=== PATIENT | female | born 1990 ===

== ENCOUNTER → 2018-11-14 | Outpatient (CLI) | payer BC ==
[~2018-11-14] MED LIST: CYCL10 PO; IBUP600 PO
== END | disposition home or self-care (01) ==
LOC: LAB SHORT 13:22 → LAB 13:22
PROVIDERS: Obstetrics & Gynecology
DX: Z01.419 Encounter for gynecological examination (general) (routine) without abnormal findings (principal)
CPT/HCPCS: G0123

== ENCOUNTER → 2021-12-13 | Outpatient (CLI) | payer BC | END | disposition home or self-care (01) | LOC: LAB 16:45 → LAB SHORT 16:45 | DX: N39.0 Urinary tract infection, site not specified (principal) | CPT/HCPCS: 87086 ==

== ENCOUNTER → 2022-01-01 | Outpatient (CLI) | payer BC | END | disposition home or self-care (01) | LOC: LAB 18:40 → LAB SHORT 18:40 | DX: N39.0 Urinary tract infection, site not specified (principal) | CPT/HCPCS: 87086 ==

== ENCOUNTER → 2022-04-11 | Outpatient (CLI) | payer BC ==
[2022-04-11 13:30] LABS: Albumin, Blood 3.9 g/dL (3.4-5.0); Bilirubin, Total 0.4 mg/dL (0.1-1.0); Bun/Creatinine Ratio 20.4 (12.0-20.0); Calcium, Blood 8.8 mg/dL (8.5-10.1); Creatinine, Blood 0.74 mg/dL (0.40-1.00); Potassium, Blood 3.9 mmol/L (3.5-5.5); Total Protein, Blood 7.9 g/dL (6.4-8.2)
[2022-04-11 13:39] LABS: BASOPHILS ABSOLUTE AUTO 0.06 K/mm3 (0.00-0.23); BASOPHILS PERCENT AUTO 1 % (0-2); EOSINOPHILS ABSOLUTE AUTO 0.08 K/mm3 (0.00-0.68); EOSINOPHILS PERCENT AUTO 1 % (0-6); Hematocrit 42.7 % (33.0-51.0); Hemoglobin 14.6 g/dL (11.5-16.0); IMMATURE GRAN ABSOLUTE AUTO 0.08 K/mm3 (0.00-0.10); IMMATURE GRAN PERCENT AUTO 1 % (0-1); LYMPHOCYTES ABSOLUTE AUTO 1.86 K/mm3 (0.84-5.20); LYMPHOCYTES PERCENT AUTO 18 % (21-46); MONOCYTES ABSOLUTE AUTO 0.63 K/mm3 (0.16-1.47); MONOCYTES PERCENT AUTO 6 % (4-13); Mean Corpuscular HGB 31.3 pg (26.0-34.0); Mean Corpuscular HGB Conc 34.2 g/dL (31.5-36.5); Mean Corpuscular Volume 91 fL (80-100); Mean Platelet Volume 9.9 fL (9.1-12.4); NEUTROPHILS ABSOLUTE AUTO 7.45 K/mm3 (1.96-9.15); NEUTROPHILS PERCENT AUTO 73 % (41-73); Platelet Count 350 K/mm3 (150-400); RDW Coefficient Variation 12.1 % (11.7-14.2); RDW Standard Deviation 40.9 fL (35.1-46.3); Red Blood Cell Count 4.67 M/mm3 (3.80-5.20); White Blood Cell Count 10.16 K/mm3 (4.00-11.30)
== END | disposition home or self-care (01) ==
LOC: LAB SHORT 12:34 → LAB 12:34
PROVIDERS: Family Medicine
DX: R53.83 Other fatigue (principal); R51.9 Headache, unspecified
CPT/HCPCS: 80053; 85025; 85651

== ENCOUNTER → 2023-06-03 | Outpatient (CLI) | payer BC ==
[2023-06-04 11:34] LABS: Candida species (DNA Probe) Negative (NEGATIVE); G. vaginalis (DNA Probe) Negative (NEGATIVE); T. vaginalis (DNA Probe) Negative (NEGATIVE)
== END | disposition home or self-care (01) ==
LOC: LAB 15:13 → LAB SHORT 15:13
PROVIDERS: Obstetrics & Gynecology
DX: N76.0 Acute vaginitis (principal)
CPT/HCPCS: 87480; 87510; 87660

== ENCOUNTER → 2023-08-08 | Outpatient (CLI) | payer BC ==
[2023-08-08 12:55] LABS: Source, Urine Clean Catch
[2023-08-08 13:05] LABS: Appearance, Urine Clear (Clear); Bilirubin, Urine Neg (Neg); Blood, Urine 1+ (Neg); Glucose Qualitative, Urine Neg (Neg); Ketones, Urine Neg (Neg); Leukocyte Esterase, Urine Neg (Neg); Nitrite, Urine Neg (Neg); Protein, Urine Neg (Neg); Urobilinogen, Urine NORM (Normal)
[2023-08-08 13:22] LABS: Color, Urine Pale Yellow (P-Yellow)
[2023-08-08 13:24] LABS: Amorphous Light (0-Heavy); Bacteria Few /hpf; Squamous Epithelial Cells Few /hpf (Few); White Blood Cells, Urine 0-2 /hpf (0-5)
== END ==
LOC: LAB 10:42 → LAB SHORT 10:42
PROVIDERS: Obstetrics & Gynecology
DX: R30.0 Dysuria (principal)
CPT/HCPCS: 81001

== ENCOUNTER 2025-03-01 06:18 | Day surgery (SDC) | payer BC ==
[~2025-03-01] VITALS: Ht 157.5 cm; Wt 90.5 kg
[2025-03-01] VITALS (20 sets, daily range): BP systolic 104–150; BP diastolic 52–92
[~2025-03-01 06:18] MED LIST changes: +LEVOTHYROXINE25 MC9 PO
[2025-03-01] MEDS ORDERED: CeFAZolin Sodium 2,000 MG in NS 100 ML IV SCH (06:40)
--- NOTE | 2025-03-01 06:50 | NUR ---
History, Chart, Medications and Allergies reviewed before start of procedure. PT HAS ANKLET AND BRACELET THAT IS NOT EASILY REMOVABLE (WELDED). WILL HAVE PT SIGN REFUSAL TO REMOVE JEWELRY FORM AND WILL COVER JEWELRY WITH COBAN.
[2025-03-01] MEDS ORDERED: FentaNYL Citrate 50 MCG/ML 2 ML Injection ONE ×4 (07:22→10:32)
[2025-03-01] MEDS ORDERED: Rocuronium Bromide 10 MG/ML 5ML Injection IV ONE ×2 (07:23→08:29)
[2025-03-01] MEDS ORDERED: Bupivacaine 0.5% HCl 5 MG/ML 30MLVIAL ONE (07:24)
--- NOTE | 2025-03-01 07:51 | NUR ---
0750- OR AIR CONDITIONING INSTALLER SUPERVISOR HERE TO TAKE PT TO THE OR. PT AMBULATED TO RESTROOM TO VOID AT APPROX 0745. BOTH ANESTHESIOLOGIST AND OR AIR CONDITIONING INSTALLER SUPERVISOR MADE AWARE OF PT JEWELRY LEFT ON AND COVERED WITH COBAN AND PAPER TAPE(EAR STUD).
[2025-03-01] MEDS ORDERED: Dexamethasone Sod Phos 10 MG/ML 1ML VIAL ONE (08:02)
[2025-03-01] MEDS ORDERED: Ondansetron HCl 2 MG / ML 2ML Vial ONE (09:59)
[2025-03-01] MEDS ORDERED: Sugammadex Sodium 200 MG/2ML SDV (100 MG/ML) ONE (10:00)
[2025-03-01] MEDS ORDERED: HYDROmorphone HCl/Pf 1MG SYR IV PRN (10:40)
[2025-03-01] MEDS ORDERED: Ondansetron HCl 2 MG / ML 2ML Vial IV PRN (10:45)
[2025-03-01] MEDS ORDERED: Metoclopramide HCl 5MG / ML 2ML Vial IV PRN (10:50)
[2025-03-01] MEDS ORDERED: Naloxone HCl 0.4MG / ML 1ML Vial IV PRN (10:50)
[2025-03-01] MEDS ORDERED: Ketorolac Tromethamine 30mg Vial ONE (11:17)
[2025-03-01] MEDS ORDERED: Ketorolac Tromethamine 30mg Vial IV SCH (12:00)
--- NOTE | 2025-03-01 13:50 | NUR ---
PT ARRIVED TO ROOM AT APPROXIMATELY 1215. PT IMMEDIATELY GOT UP FROM [facility], AMBULATED TO RESTROOM AND VOIDED. RESTING IN BED AT THIS TIME. LCA. HRR. LAP INCISIONS TO ABD X4 CDI W/TISS ADHESIVE. NIKKI PAD IN PLACE. MEDICATED PER ORDERS FOR PAIN. KPAD TO ABD FOR COMFORT. TOLERATING PO. VSS. ORIENTED TO USE OF CALL LIGHT WHICH IS IN REACH.
[2025-03-01] MEDS ORDERED: IBUP400 PO (14:06)
[2025-03-01] MEDS ORDERED: ACET500 PO (14:07)
[2025-03-01] MEDS ORDERED: ESTR2 PO (14:07)
[2025-03-01] MEDS ORDERED: ONDA4ODT MM (14:07)
[2025-03-01] MEDS ORDERED: OXYC5 PO (14:08)
[2025-03-01] MEDS ORDERED: MIRALAX17 GM PO (14:08)
--- NOTE | 2025-03-01 15:20 | NUR ---
pt wishes to discharge VSS. PAIN CONTROLLED ADEQUATELY WITH PO PAIN MEDS. HAS VOIDED AND AMBULATED. TOLERATED PO. GETTING DRESSED.
--- NOTE | 2025-03-01 16:03 | NUR ---
DISCHARGED REVIEWED DC INSTRUCTIONS W/PT; VERBALIZED UNDERSTANDING. DC'D IV, CATHETER INTACT. PT MET CRITERIA FOR DC. LEFT UNIT IN WC W/POSSESSIONS AND DC PAPERWORK IN HAND, ACCOMPANIED BY SPOUSE TO RIDE OUTSIDE.
[2025-03-02] MEDS ORDERED: Enoxaparin 40 MG/0.4 ML SYR SC SCH (09:00)
[2025-03-02] MEDS ORDERED: Polyethylene Glycol 3350 17 gm PO SCH (09:00)
== END 2025-03-01 15:54 | disposition home or self-care (01) ==
LOC: ORSCMMR 06:18 → ORD 07:30 → SURS 11:53 → ORSCMMR 15:54
PROVIDERS: Obstetrics & Gynecology
PROC: 0UT2FZZ Resection of Bilateral Ovaries, Via Natural or Artificial Opening With Percutaneous Endoscopic Assistance (ICD-10-PCS; principal; 2025-03-01 07:30)
PROC: 0UT7FZZ Resection of Bilateral Fallopian Tubes, Via Natural or Artificial Opening With Percutaneous Endoscopic Assistance (ICD-10-PCS; principal; 2025-03-01 07:30)
PROC: 0UT9FZZ Resection of Uterus, Via Natural or Artificial Opening With Percutaneous Endoscopic Assistance (ICD-10-PCS; principal; 2025-03-01 07:30)
PROC: 0WBH4ZX Excision of Retroperitoneum, Percutaneous Endoscopic Approach, Diagnostic (ICD-10-PCS; principal; 2025-03-01 07:30)
DX: Z15.01 Genetic susceptibility to malignant neoplasm of breast (principal); D25.2 Subserosal leiomyoma of uterus; E07.9 Disorder of thyroid, unspecified; Z79.899 Other long term (current) drug therapy
CPT/HCPCS: 88305; 88307; A9270; J0690; J1100; J1885; J2405; J2704; J3010; J7120